=== PATIENT | female | born 1945 | race Caucasian/White ===

== ENCOUNTER 2021-09-06 06:25 | Day surgery (SDC) | payer MEDICARE, OTHER ==
[~2021-09-06] VITALS: Ht 188 cm; Wt 63.5 kg
[~2021-09-06 06:25] MED LIST: ADVIL200 MG PO; ATENOLOL50 MG PO; CALCIUM 600 +1 EACH PO; CLINDAMYCIN PHO60 ML TOP; CYCLOBENZAPRINE5 MG PO; ESCITALOPRAM OXA5 MG PO; HYDROXYZINE HCL10 MG PO; HYZAAR 100-251 EACH PO; LEVOTHYROXINE50 MC1 PO; SIMVASTATIN80 MG PO
--- NOTE | 2021-09-06 08:02 | NUR ---
09/06/21 0802 Loida Jasso 0754- PT ARRIVES TO PACU AWAKE AND TALKING WITH STAFF. PT REPORTS NO PAIN OR NAUSEA. PT FALLS TO SLEEP WHEN NOT BEING STIMULATED. RESP EVEN AND UNLABORED. OXYGEN SAT HIGH 90'S TO 100% ON 3L VIA CO2 NC. 0756- PT PASSING FLATUS. 0759- PT WOKEN AND ENCOURAGED TO TAKE DEEP BREATHS. PT IS ABLE TO FOLLOW THIS COMMAND.
--- NOTE | 2021-09-06 10:49 | OR ---
[facility] [address], [place] [address] Signed DATE OF OPERATION: 09/06/2021 SURGEON: Power Alejandra MD PREOPERATIVE DIAGNOSES: 1. Personal history of colonic polyps in 2008 at age 63. 2. Diverticulosis. POSTOPERATIVE DIAGNOSIS: Moderate pandiverticulosis. PROCEDURE: Colonoscopy without biopsy. ESTIMATED BLOOD LOSS: None. INDICATIONS: Lisa is a 76-year-old female, who returns for a followup colonoscopy. She came in 2008 at the age of 63. She had diverticulosis, serrated adenomatous polyp less than 5 mm and a tiny hyperplastic polyp. She did well with Versed and fentanyl. She came back in 2014 at the age of 68. Again, she had moderate diverticulosis but no polyps. She did well once again with Versed and fentanyl. She returns now for her followup colonoscopy. We are still coming through the COVID pandemic. She has no lower GI complaints. There is no family history of colon cancer or polyps. She thinks this will be her last colonoscopy. In the office, I gave her a pamphlet on colonoscopy and we looked at that together along with the risks including, but not limited to gas bloating, crampy abdominal pain, bleeding, perforation requiring surgery, and missed diagnosis. We also discussed the need for IV conscious sedation. She had expressed understanding and wished to proceed. PROCEDURE NOTE: Lisa was taken into our endoscopy suite and placed in the left lateral decubitus position. She used 3 mg of Versed and 100 mcg of fentanyl to cover the case. A digital rectal exam was performed and she had very minimal external hemorrhoid tissue. She had good sphincter tone. There were no masses. The adult colonoscope was introduced and advanced all around into the cecum under direct visualization of the camera without difficulty. It took just a minute or two to get up through the sigmoid colon and then quite quickly into the cecum itself. Her prep was quite excellent. We could easily see the appendiceal orifice and ileocecal valve. The scope had been slowly withdrawn. We Electronically Signed By: POWER ALEJANDRA MD 09/06/21 1049 PATIENT NAME: LISA NIELSEN OPERATIVE REPORT DATE OF : 45 REPORT #: [id number] PHYSICIAN: POWER ALEJANDRA MD PCP: JOSE DAVID TOUSSAINT REPORT IS CONFIDENTIAL AND NOT TO BE RELEASED WITHOUT AUTHORIZATION [facility] [address] [place] [id number] Signed took several pictures throughout for photodocumentation. She does have moderate pandiverticulosis. They are moderate in size, moderate in number, and scattered about. There were no polyps. The rectum was unremarkable. Upon retroflexion of the scope, we did not see any additional pathology above the anal canal. After this, the gas was suctioned out and the colonoscope removed. Lisa tolerated the procedure quite well. RECOMMENDATIONS: Lisa is welcome to follow up in 5 years for repeat colonoscopy so long as her health holds up. However, she told me this might be her last colonoscopy. Power Alejandra MD ALB/MODL /[id number] cc: NAJMA Nuñez MD Copies: JOSE DAVID TOUSSAINT ANDREW L MD ~ Electronically Signed By: POWER ALEJANDRA MD 09/06/21 1049 PATIENT NAME: LISA NIELSEN OPERATIVE REPORT DATE OF : 45 REPORT #: [id number] PHYSICIAN: POWER ALEJANDRA MD PCP: JOSE DAVID TOUSSAINT REPORT IS CONFIDENTIAL AND NOT TO BE RELEASED WITHOUT AUTHORIZATION
--- NOTE | 2021-09-06 13:44 | NUR ---
PT ALERT, ORIENTED AND SUPPORTED BY HER LEBRON. PT HAS HAD SCOPE BEFORE, ALL QUESTIONS ASKED ANSWERED. LEBRON WILL REMAIN FOR DC. GAVE BETZY
== END 2021-09-06 09:01 | disposition home or self-care (01) ==
LOC: DS 06:25 → OPS 06:25
PROVIDERS: ATTEND Colon & Rectal Surgery
PROC: 0DJD8ZZ Inspection of Lower Intestinal Tract, Via Natural or Artificial Opening Endoscopic (ICD-10-PCS; principal; 2021-09-06 07:30)
DX: Z12.11 Encounter for screening for malignant neoplasm of colon (principal); Z86.010 Personal history of colon polyps; K57.30 Diverticulosis of large intestine without perforation or abscess without bleeding; I10 Essential (primary) hypertension; E78.5 Hyperlipidemia, unspecified; E03.9 Hypothyroidism, unspecified; Z88.2 Allergy status to sulfonamides
CPT/HCPCS: 99153; G0500; J0690; J2250; J3010; J7121